=== PATIENT | male | born 1965 | race Caucasian/White ===

== ENCOUNTER → 2020-06-28 | Outpatient (CLI) | payer MEDICARE, OTHER ==
[~2020-06-28] MED LIST: ACID-PEP20 MG PO; CINNAMON500 MG PO; CO Q-1010 MG PO; KEPPRA1000 MG PO; MULTI-VITAMIN1 EACH PO; OMEPRAZOLE20 M1 PO; PREVACID30 MG PO; VITAMIN B COMPLEX PO
== END ==
LOC: OPSV2 10:26
DX: Z01.812 Encounter for preprocedural laboratory examination (principal); M21.371 Foot drop, right foot; G57.31 Lesion of lateral popliteal nerve, right lower limb

== ENCOUNTER 2020-06-29 07:45 | Day surgery (SDC) | payer MEDICARE, OTHER ==
[~2020-06-29] VITALS: Ht 175.3 cm; Wt 81.6 kg
[2020-06-29] MEDS ORDERED: PREVACID30 MG PO (08:57)
[2020-06-29] MEDS ORDERED: KEPPRA1000 MG PO (08:57)
[2020-06-29] MEDS ORDERED: CINNAMON500 MG PO (08:58)
[2020-06-29] MEDS ORDERED: MULTI-VITAMIN1 EACH PO (08:58)
[2020-06-29] MEDS ORDERED: OMEPRAZOLE20 M1 PO (08:58)
[2020-06-29] MEDS ORDERED: VITAMIN B COMPLEX PO (08:59)
[2020-06-29] MEDS ORDERED: CO Q-1010 MG PO (08:59)
[2020-06-29] MEDS ORDERED: ACID-PEP20 MG PO (09:12)
== END 2020-06-29 19:45 | disposition home or self-care (01) ==
LOC: OR 07:45 → M/S 18:39 → OR 19:45
DX: M21.371 Foot drop, right foot (principal); M21.6X1 Other acquired deformities of right foot; G57.31 Lesion of lateral popliteal nerve, right lower limb; M25.371 Other instability, right ankle; M19.071 Primary osteoarthritis, right ankle and foot; Z86.73 Personal history of transient ischemic attack (TIA), and cerebral infarction without residual deficits; Z91.81 History of falling; Z88.0 Allergy status to penicillin; Z79.899 Other long term (current) drug therapy
CPT/HCPCS: 36415; 73610; 73650; 76000; C1713; C1762; C1769; J2001; J2250; J2704; J2710; J2795; J3010; J3370; J7120; Q4133

== ENCOUNTER → 2020-07-12 | Outpatient (CLI) | payer MEDICARE, OTHER | LOC: KOH-I 14:07 | DX: Z47.89 Encounter for other orthopedic aftercare (principal); Z98.1 Arthrodesis status | CPT/HCPCS: 73630 ==

== ENCOUNTER → 2020-08-13 | Outpatient (CLI) | payer MEDICARE, OTHER | LOC: KOH-I 13:51 | DX: Z47.89 Encounter for other orthopedic aftercare (principal); Z98.1 Arthrodesis status | CPT/HCPCS: 73610; 73630 ==

== ENCOUNTER → 2020-08-27 | Outpatient (CLI) | payer MEDICARE, OTHER | LOC: KOH-I 14:59 | DX: Z47.89 Encounter for other orthopedic aftercare (principal); Z98.1 Arthrodesis status | CPT/HCPCS: 73610 ==

== ENCOUNTER → 2020-09-27 | Outpatient (CLI) | payer MEDICARE, OTHER | LOC: KOH-I 14:39 | DX: Z47.89 Encounter for other orthopedic aftercare (principal); Z98.1 Arthrodesis status | CPT/HCPCS: 73610 ==

== ENCOUNTER → 2021-02-11 | Outpatient (CLI) | payer MEDICARE, OTHER | LOC: KOH-I 14:29 | DX: M25.571 Pain in right ankle and joints of right foot (principal) | CPT/HCPCS: 73610 ==

== ENCOUNTER → 2021-02-18 | Outpatient (CLI) | payer MEDICARE, OTHER | LOC: KOH-I 14:00 | DX: S92.901K Unspecified fracture of right foot, subsequent encounter for fracture with nonunion (principal) | CPT/HCPCS: 73700 ==

== ENCOUNTER → 2021-04-29 | Outpatient (CLI) | payer MEDICARE, OTHER | LOC: KOH-I 14:02 | DX: S82.891A Other fracture of right lower leg, initial encounter for closed fracture (principal) | CPT/HCPCS: 73610 ==